=== PATIENT | female | born 1975 | race Hispanic/Latino ===

== ENCOUNTER 2017-10-27 16:24 | Outpatient (CLI) | payer SELFPAY | END 2017-10-27 16:25 | disposition home or self-care (01) | LOC: BICRAD 16:24 | PROVIDERS: ATTEND Nurse Practitioner Family | DX: M79.641 Pain in right hand (principal); M25.531 Pain in right wrist; M25.431 Effusion, right wrist; M79.89 Other specified soft tissue disorders ==

== ENCOUNTER 2024-09-20 22:07 | Inpatient (IN) | payer SELFPAY ==
[2024-09-20 22:51] LABS: #Basophils 0.03 10x3/uL (0.0-0.2); %Basophils 0.4 % (0.0-1.0); %Eosinophils 2.5 % (0.0-10.0); %Lymphocytes 26.6 % (21.0-51.0); %Monocytes 7.3 % (0.0-10.0); %Neutrophils 62.9 % (42.0-75.0); Hematocrit 34.4 % (36.0-47.0); Hemoglobin 11.4 g/dL (12.0-16.0); Mean Corpuscular HGB CONC 33.1 g/dL (32.0-36.0); Mean Corpuscular Hemoglobin 29.1 pg (27.0-31.0); Mean Corpuscular Volume 87.8 fL (78.0-98.0); Mean Platelet Volume 10.3 fL (7.4-10.4); Platelet Count 253 10x3/uL (130-400); RBC Distribution Width 12.6 % (11.5-14.5); Red Blood Cell (RBC) Count 3.92 mill/uL (4.20-5.40)
[2024-09-20 22:54] LABS: Bacteria/HPF 1+ HPF (None Seen); Bilirubin Negative (Negative); Blood, Urine Negative (Negative); CAUTI Indications for Culture Pelvic or flank pain; Clarity Clear (Clear); Glucose, Urine (Dipstick) Normal (Negative); Ketone, Urine Negative (Negative); Leukocyte 250 Leu/uL (Negative); Nitrite Negative (Negative); Protein, Urine (Dipstick) Negative (Neg-Trace); RBC/HPF None Seen HPF (0-3); Specific Gravity, Urine 1.006 (1.002-1.036); Squamous Epithelial 0-3 HPF (0-3); Urobilinogen Normal mg/dL (Less than 2); WBC/HPF 0-3 HPF (0-3)
[2024-09-20 22:55] LABS: Urine Culture Reflex No No
[2024-09-20 23:06] LABS: ALT (SGPT) 16 U/L (Less than 34); AST (SGOT) 45 U/L (11-34); Albumin 3.6 g/dL (3.1-4.5); Alkaline Phosphatase 107 U/L (40-110); Anion Gap 13 mmol/L (10-20); BUN (Urea Nitrogen) 15 mg/dL (7.0-18.7); Bilirubin, Total 0.3 mg/dL (0.3-1.2); Calc. Creatinine Clearance 0 mL/min (70-130); Calcium 9.2 mg/dL (7.8-10.44); Carbon Dioxide 23 mmol/L (22-29); Chloride 106 mmol/L (98-107); Estimated GFR 116; Globulin 3.7 g/dL (2.4-3.5); Glucose 122 mg/dL (70-105); Lipase 31 U/L (8-78); Protein, Total 7.3 g/dL (6.0-8.3); Sodium 138 mmol/L (136-145)
[2024-09-21] MEDS ORDERED: Morphine 4 MG/ML VIAL ONE (01:06)
[2024-09-21] MEDS ORDERED: Ondansetron PF 4 MG/2 ML Vial ONE (01:06)
[2024-09-21] MEDS ORDERED: Ketorolac Tromethamine 30 MG (1 mL) VIAL ONE ×2 (01:06→12:18)
[2024-09-21] MEDS ORDERED: Piperacillin/Tazobactam 3.375 GM VIAL ONE (01:15)
[2024-09-21] MEDS ORDERED: Sodium Chloride 0.9% 100 ML ONE (01:15)
[2024-09-21] MEDS ORDERED: Dextrose 50% Abboject 50 ML SYRINGE SLOW IVP PRN (01:38)
[2024-09-21] MEDS ORDERED: Dextrose 5% in Water 1,000 ML IV PRN (01:38)
[2024-09-21] MEDS ORDERED: Glucagon 1 MG/ML KIT IM PRN (01:38)
[2024-09-21] MEDS ORDERED: hydrALAZINE 20 MG/ML VIAL SLOW IVP PRN (01:38)
[2024-09-21] MEDS ORDERED: Morphine 2 MG/ML VIAL SLOW IVP PRN (01:38)
[2024-09-21] MEDS: Sodium Chloride 0.9% 1,000 ML IV SCH (03:00)
[2024-09-21 03:10] VITALS: BMI 24.0
[2024-09-21 05:05] LABS: #Basophils 0.03 10x3/uL (0.0-0.2); %Basophils 0.5 % (0.0-1.0); %Eosinophils 3.1 % (0.0-10.0); %Lymphocytes 26.3 % (21.0-51.0); %Monocytes 8.4 % (0.0-10.0); %Neutrophils 61.4 % (42.0-75.0); Hematocrit 32.1 % (36.0-47.0); Hemoglobin 10.3 g/dL (12.0-16.0); Mean Corpuscular HGB CONC 32.1 g/dL (32.0-36.0); Mean Corpuscular Hemoglobin 28.6 pg (27.0-31.0); Mean Corpuscular Volume 89.2 fL (78.0-98.0); Mean Platelet Volume 10.5 fL (7.4-10.4); Platelet Count 215 10x3/uL (130-400); RBC Distribution Width 12.6 % (11.5-14.5)
[2024-09-21 05:18] LABS: ALT (SGPT) 14 U/L (Less than 34); AST (SGOT) 27 U/L (11-34); Alkaline Phosphatase 87 U/L (40-110); Anion Gap 9 mmol/L (10-20); BUN (Urea Nitrogen) 11 mg/dL (7.0-18.7); Bilirubin, Total 0.5 mg/dL (0.3-1.2); Calc. Creatinine Clearance 118 mL/min (70-130); Calcium 8.3 mg/dL (7.8-10.44); Carbon Dioxide 26 mmol/L (22-29); Chloride 110 mmol/L (98-107); Estimated GFR 113; Glucose 97 mg/dL (70-105); Potassium 4.1 mmol/L (3.5-5.1); Sodium 141 mmol/L (136-145)
[2024-09-21] MEDS: Piperacillin/Tazobactam 3.375 GM in Sodium Chloride 0.9% 100 ML IVPB SCH (06:14)
[2024-09-21] MEDS ORDERED: Indocyanine Green 25 MG/10 ML VIAL IVP SCH (07:15)
[2024-09-21] MEDS ORDERED: Iopamidol 370 76% 100 ML VIAL ONE (10:12)
[2024-09-21] MEDS ORDERED: Indocyanine Green 25 MG/10 ML VIAL ONE (10:28)
[2024-09-21] MEDS ORDERED: EPINEPHrine 1 MG/ML VIAL ONE (10:28)
[2024-09-21] MEDS ORDERED: Bupivacaine 0.25% HCL 30 ML VIAL ONE (10:28)
[2024-09-21] MEDS ORDERED: fentaNYL PF 100 MCG/2 ML SYRINGE ONE (10:51)
[2024-09-21] MEDS ORDERED: PROPOFOL 20 ML ONE (10:51)
[2024-09-21] MEDS ORDERED: Midazolam HCl 2 mg/2 ml Vial ONE (10:52)
[2024-09-21] MEDS ORDERED: Lidocaine 1% PF 5 ML VIAL ONE (10:53)
[2024-09-21] MEDS ORDERED: Rocuronium Bromide 10 MG/ML (10ML VIAL) ONE (10:53)
[2024-09-21] MEDS ORDERED: Dexamethasone 20 MG/5 ML VIAL ONE (11:30)
[2024-09-21] MEDS ORDERED: SUGAMMADEX SODIUM 200 MG/2 ML VIAL ONE (11:51)
[2024-09-21] MEDS ORDERED: fentaNYL 50 mcg/mL 1 mL Vial ONE ×3 (12:55→13:15)
[2024-09-21] MEDS: traMADol HCl 50 MG TAB PO PRN (15:59)
[2024-09-22] MEDS: Acetaminophen 325 MG TAB PO SCH (08:07)
[2024-09-22] MEDS: Ondansetron PF 4 MG/2 ML Vial IVP PRN (18:10)
[2024-09-22] MEDS: Ciprofloxacin 500 MG TAB PO SCH (19:54)
[2024-09-22] MEDS: Acetaminophen 500 MG TAB PO SCH (21:16)
[2024-09-22] MEDS: Enoxaparin 40 MG (0.4 mL) SYRINGE SC SCH (21:17)
[2024-09-23] MEDS: Acetaminophen 500 MG TAB PO SCH (09:31)
[2024-09-24] MEDS: traMADol HCl 50 MG TAB PO PRN (05:41)
[2024-09-27 07:31] VITALS: TEMP 98.6
[2024-09-27] MEDS: traMADol HCl 50 MG TAB PO SCH (11:06)
[2024-09-27 11:43] VITALS: BP 100/61
== END 2024-09-27 11:42 | disposition home or self-care (01) | DRG 409 ==
LOC: ERS 22:07 → SURG A 09-21 01:41
PROVIDERS: ADMIT Surgery; ATTEND Surgery
PROC: 0FJ44ZZ Inspection of Gallbladder, Percutaneous Endoscopic Approach (ICD-10-PCS; principal; 2024-09-21)
PROC: 0FJB4ZZ Inspection of Hepatobiliary Duct, Percutaneous Endoscopic Approach (ICD-10-PCS; 2024-09-21)
PROC: 0FJ04ZZ Inspection of Liver, Percutaneous Endoscopic Approach (ICD-10-PCS; 2024-09-21)
PROC: 8E0W4CZ Robotic Assisted Procedure of Trunk Region, Percutaneous Endoscopic Approach (ICD-10-PCS; 2024-09-21)
DX: C23 Malignant neoplasm of gallbladder (principal); K80.00 Calculus of gallbladder with acute cholecystitis without obstruction; R16.0 Hepatomegaly, not elsewhere classified; Z91.018 Allergy to other foods
CPT/HCPCS: 36415; 36416; 74177; 76705; 80053; 81001; 82105; 82378; 83690; 85025; 96374; 96375; C1889; J0171; J0665; J1100; J1650; J1885; J2250; J2270; J2405; J2543; J2704; J3010; J7030; Q9967; S2900